=== PATIENT | female | born 1940 | race Caucasian/White ===

== ENCOUNTER → 2020-08-16 | Outpatient (CLI) | payer MEDICARE ==
[~2020-08-16] MED LIST: HYDR25TA6 PO; LOSA50TA14 PO; MULT-449 PO; OMEP20TA62 PO; ROSU5TAB PO; VENL75TA PO
[2020-08-16 15:22] LABS: ALANINE AMINOTRANSFERASE 19 U/L (12-78); ALBUMIN 4.1 g/dL (3.4-5.0); ANION GAP 7 mmol/L (5-15); CALCIUM 9.2 mg/dL (8.5-10.1); CHLORIDE 108 mmol/L (98-107); CREATININE 0.88 mg/dL (0.55-1.02)
[2020-08-16 15:24] LABS: ALKALINE PHOSPHATASE 104 U/L (45-117); BILIRUBIN,TOTAL 0.3 mg/dL (0.2-1.0); TOTAL PROTEIN 8.1 g/dL (6.4-8.2)
== END | disposition home or self-care (01) ==
LOC: STAR 13:49
PROVIDERS: ATTEND Internal Medicine
DX: Z01.812 Encounter for preprocedural laboratory examination (principal); Z20.828 Contact with and (suspected) exposure to other viral communicable diseases; R13.10 Dysphagia, unspecified
CPT/HCPCS: 36415; 80053; 87635; 93005

== ENCOUNTER 2020-08-21 07:57 | Day surgery (SDC) | payer MEDICARE ==
[~2020-08-21] VITALS: Ht 160 cm; Wt 83.1 kg
[2020-08-21 08:52] VITALS: BP 153/87
[2020-08-21] MEDS ORDERED: CHLORHEXIDINE 15 ML UDC MM ONE (09:00)
[2020-08-21] MEDS ORDERED: LACTATED RINGERS 1,000 ML IV SCH (09:00)
[2020-08-21] MEDS ORDERED: PROPOFOL 50 ML ONE (09:27)
[2020-08-21] MEDS ORDERED: ONABOTULINUMTOXINA 100 UNITS ONE (09:58)
[2020-08-21] MEDS ORDERED: FENTANYL PF 100 MCG/2ML ONE (10:53)
[2020-08-21] MEDS ORDERED: DEXAMETHASONE 4 MG/ML, 1ML ONE (11:05)
[2020-08-21] MEDS ORDERED: ONDANSETRON 2MG/ML, 2ML ONE (11:05)
[2020-08-21] MEDS ORDERED: SUCCINYLCHOLINE 20 MG/ML, 10ML ONE (11:05)
[2020-08-21] MEDS ORDERED: GLYCOPYRROLATE 0.2MG/1ML, 5ML ONE (11:05)
[2020-08-21] MEDS ORDERED: PROPOFOL 10 MG/ML, 20ML ONE (11:05)
[2020-08-21] MEDS ORDERED: CEFAZOLIN 1,000 MG ONE (11:05)
[2020-08-21] MEDS ORDERED: NEOSTIGMINE 1 MG/ML, 10ML ONE (11:05)
== END 2020-08-21 10:55 | disposition home or self-care (01) ==
LOC: OUT 07:57
PROVIDERS: ATTEND Internal Medicine
DX: K22.0 Achalasia of cardia (principal); K22.8 Other specified diseases of esophagus; K21.9 Gastro-esophageal reflux disease without esophagitis; I10 Essential (primary) hypertension; E78.5 Hyperlipidemia, unspecified; Z88.5 Allergy status to narcotic agent; Z91.013 Allergy to seafood; Z90.710 Acquired absence of both cervix and uterus; Z98.890 Other specified postprocedural states; Z79.899 Other long term (current) drug therapy; Z82.49 Family history of ischemic heart disease and other diseases of the circulatory system; Z83.3 Family history of diabetes mellitus
CPT/HCPCS: 43236; 43249; 82962; C1725; J0330; J0585; J2405; J2704; J3010; J7120; J0690; J1100; J2710